=== PATIENT | female | born 1985 | race African-American/Black ===

== ENCOUNTER 2019-08-29 11:49 | Emergency (ER) | payer OTHER ==
[~2019-08-29] VITALS: Ht 167.6 cm; Wt 108.0 kg
[~2019-08-29 11:49] MED LIST: ACETAMINOPHEN-1 EAC1 PO; AUGMENTIN 875875 M1 PO; BACTRIM DS TAB1 EACH PO; FLAGYL500 MG PO; NONE PER PT; PYRIDIUM200 MG PO; TYLENOL EXTRA500 MG PO; VICODIN PO
[2019-08-29 12:15] LABS: URINE BILIRUBIN NEGATIVE (Negative); URINE BLOOD NEGATIVE (Negative); URINE CLARITY CLEAR; URINE COLOR YELLOW; URINE GLUCOSE-RANDOM* NEGATIVE (Negative); URINE KETONES NEGATIVE (Negative); URINE LEUKOCYTES-REFLEX NEGATIVE (Negative); URINE NITRITE-REFLEX NEGATIVE (Negative); URINE PROTEIN (DIPSTICK) NEGATIVE (Negative); URINE SPECIFIC GRAVITY >= 1.030 (1.005-1.035); URINE UROBILINOGEN 0.2 E.U./dl (0.2-1.0)
[2019-08-29 12:53] LABS: ABSOLUTE NEUTROPHILS 3.6 thou/uL (1.4-8.2); BASOPHILS 1.3 % (0.0-2.0); EOSINOPHILS 1.6 % (0.0-3.0); HEMATOCRIT 31.3 % (37.0-47.0); HEMOGLOBIN 9.6 gm/dL (12.0-15.0); LYMPHOCYTES 32.2 % (24.0-44.0); MCH 21.5 pg (26.0-34.0); MCHC 30.7 g/dL (28.0-37.0); MCV 70.1 fL (80.0-100.0); MONOCYTES 7.2 % (1.0-8.0); PLATELET COUNT 378 thou/uL (150-400); POLYS 57.7 % (36.0-66.0); RBC 4.47 mil/uL (4.20-5.00); RDW 18.8 % (10.5-14.5); WBC 6.2 thou/uL (4.0-11.0)
[2019-08-29 13:03] LABS: CALCIUM 9.5 mg/dL (8.5-10.1); CREATININE 0.8 mg/dL (0.6-1.0); POTASSIUM 3.5 mmol/L (3.5-5.1)
[2019-08-29 13:10] LABS: ALBUMIN 3.4 g/dL (3.4-5.0); TOTAL BILIRUBIN 0.3 mg/dL (<0.1-1.0); TOTAL PROTEIN 7.6 g/dL (6.4-8.2)
[2019-08-29 13:26] LABS: ANISOCYTOSIS 1+; HYPOCHROMASIA 1+; MICROCYTES 1+
[2019-08-29] MEDS ORDERED: IRON325 PO (13:40)
[2019-08-29] MEDS ORDERED: FLAGYL500 M1 PO (13:40)
[2019-08-29 13:41] VITALS: BP 132/81
[2019-08-29] MEDS ORDERED: LOTRIMIN AF12 GM TOP (13:43)
== END 2019-08-29 13:51 | disposition home or self-care (01) ==
LOC: ER 11:49
PROVIDERS: Physician Assistant
DX: N76.0 Acute vaginitis (principal); B37.2 Candidiasis of skin and nail; D64.9 Anemia, unspecified; R42 Dizziness and giddiness; Z90.49 Acquired absence of other specified parts of digestive tract; Z98.890 Other specified postprocedural states; Z87.891 Personal history of nicotine dependence; Z91.018 Allergy to other foods